=== PATIENT | male | born 1975 | race Caucasian/White ===

== ENCOUNTER 2020-06-09 09:38 | Outpatient (REF) | payer MEDICAID, SELFPAY | END 2020-06-09 09:39 | disposition home or self-care (01) | LOC: HO.LAB 09:38 | PROVIDERS: Visit Provider Internal Medicine | DX: Z20.822 Contact with and (suspected) exposure to COVID-19 (principal) | CPT/HCPCS: 36415; C9803; U0003; U0005 ==

== ENCOUNTER 2020-06-18 12:58 | Outpatient (REF) | payer MEDICAID, SELFPAY | END 2020-06-18 12:59 | disposition home or self-care (01) | LOC: HO.LAB 12:58 | PROVIDERS: Visit Provider Internal Medicine | DX: Z20.822 Contact with and (suspected) exposure to COVID-19 (principal) | CPT/HCPCS: 36415; C9803; U0003; U0005 ==

== ENCOUNTER 2020-06-19 12:32 | Emergency (ER) | payer MEDICAID, SELFPAY ==
--- NOTE | ~2020-06-19 | CT_ITS ---
EXAMINATION: CT MAXILLOFACIAL WITH CONTRAST CLINICAL INFORMATION: Right-sided facial swelling/abscess. COMPARISON: None available. TECHNIQUE: Multidetector helical imaging was performed in the axial plane with generation of coronal and sagittal reformatted images. This CT examination was performed using dose optimization techniques as appropriate, variously including the following: *Automated exposure control *Adjustment of mA and/or kV according to patient size (this includes techniques or standardized protocols for targeted exams where dose is matched to indication/reason for exam; i.e. extremities or head) *Use of iterative reconstruction technique DLP: 242 mGy-cm FINDINGS: FRONTAL SINUSES AND DRAINAGE PATHWAYS: Moderate mucosal thickening of the left frontal sinus. The frontoethmoidal recesses are patent. MAXILLARY SINUSES AND DRAINAGE PATHWAYS: Moderate mucosal thickening of the left greater than right maxillary sinuses. Opacification of the maxillary ostia and infundibula. ETHMOID SINUSES: Moderate mucosal thickening of the ethmoid air cells. The ethmoid roofs appear symmetric and intact. SPHENOID SINUS AND DRAINAGE PATHWAYS: The sphenoid sinus is clear. Partial opacification of the right greater than left sphenoethmoidal recesses. The carotid canals are normally covered by bone. NASAL PASSAGE: Moderate mucosal thickening of the right greater than left nasal passages. Moderate rightward nasal septal deviation with spurring. ORBITS: Normal appearance of the osseous orbits. The lamina papyracea are intact. Mild edema within the right inferior periorbital soft tissues. No additional Significant preseptal or retrobulbar edema. Normal appearance of the globes. Normal symmetric appearance of the extraocular musculature. No abnormalities of the intraconal or extraconal adipose tissue. Normal appearance of the optic nerve sheaths. Normal appearance of the lacrimal glands. No orbital fluid collections. No abnormalities of the orbital apices. TEMPOROMANDIBULAR JOINTS: The temporomandibular joints remain well aligned. Mild degenerative arthropathy of the right-sided temporomandibular joint. Normal appearance of the left-sided temporomandibular joint. ADDITIONAL RELEVANT FINDINGS: There appears to be a subcutaneous collection with peripheral enhancement along the right cheek, measuring 1.2 x 1.1 x 0.9 cm. Moderate phlegmonous edema surrounding this collection within the subcutaneous tissues along the right side of face. Mild edema within the right inferior periorbital soft tissues. Mild thickening of the right-sided platysma muscle. No radiopaque foreign bodies. Mildly prominent right upper cervical chain lymph nodes measuring up to 1.2 cm. No evidence of maxillofacial bone fractures. The zygomatic arches remain intact. No nasal bone fracture. No evidence of mandibular or maxillary fracture. The patient is edentulous. The visualized mastoid air cells and middle ear cavities remain well aerated. Limited evaluation of the intracranial structures without significant abnormalities. The premaxillary, retromaxillary, pterygopalatine fossa, temporal fossa, and parapharyngeal adipose tissue is maintained. The tongue is deviated to the right. Otherwise, no demonstrated soft tissue abnormalities within the intrinsic tissues of the tongue. CT/CT facial bones w con IMPRESSION: There appears to be peripheral enhancement surrounding a 1.2 cm subcutaneous region along the right cheek suggestive of focal infection/early abscess formation. Moderate phlegmonous edema throughout the right side of face surrounding this region. No collection within the deep soft tissues of the face. No radiopaque foreign bodies.
[2020-06-19 12:39] VITALS: BP 145/83; PULSE 83; RESP 16; TEMP 36.6; O2SAT 97; BMI 16.2
--- NOTE | 2020-06-19 13:05 | ED_ITS ---
HPI - Skin/Abscess/Foreign Bdy General Chief complaint: Skin/Abscess/Foreign Body Stated complaint: FACIAL SWELLING Time Seen by Provider: 06/19/20 12:55 Source: patient Mode of arrival: ambulatory Limitations: no limitations History of Present Illness HPI narrative: This is a 44-year-old male who reports longstanding history of stomach ulcer otherwise denies any significant past medical history who presents with complaint of states he had a ?pimple? on the right-sided face which he ?popped? last night and today right side of face appears to be more swelling with more pain and redness going to the lower eye. He denies any fever. He denies any intraoral pain. Denies any eye pain. MD complaint: abscess/boil Onset (ago): day(s) Tetanus up to date: yes Location: face Severity: moderate Associated symptoms: denies other symptoms Treatments prior to arrival: none Related Data Previous Rx's Medication Instructions Recorded cephalexin 500 mg PO Q8H 10 Days #30 cap 06/19/20 doxycycline monohydrate 100 mg PO BID 10 Days #20 cap 06/19/20 mupirocin 1 appl TOPICAL BID #15 g 06/19/20 Allergies Allergy/AdvReac Type Severity Reaction Status Date / Time codeine [CODEINE] Allergy Intermediate RASH Unverified 01/10/20 15:36 Review of Systems Review of Systems: Constitutional: No Weight loss, No Fever, No Chills, No Night Sweats, No Fatigue, No Malaise ENT/Mouth: No Hearing loss, No Ear Pain, No Nasal Congestion, No Sinus Pain, No Hoarseness, No sore throat, No Rhinorrhea, No Swallowing Difficulty Eyes: No Eye Pain, No Swelling, No Redness, No Foreign Body, No Discharge, No Vision Changes Cardiovascular: No Chest Pain, No SOB, No Dyspnea on Exertion, No Orthopnea, No Edema, No Palpitations Respiratory: No Cough, No Sputum, No Wheezing, No Smoke Exposure, No Dyspnea Gastrointestinal: No Nausea, No Vomiting, No Diarrhea, No Constipation, No abdominal Pain, No Hematochezia, No Melena Genitourinary: no irregular bleeding, No Dysuria, No Urinary Frequency, No Hematuria, No Urinary Incontinence, No Urgency, No Flank Pain, No Urinary Flow Changes, No Hesitancy Musculoskeletal: No joint pain, No Myalgias, No Joint Swelling Skin: As noted per HPI Neuro: No Weakness, No Numbness, No Paresthesias, No Loss of Consciousness, No Dizziness, No Headache Psych: No Social Issues Heme/Lymph: No Bruising, No Bleeding,No Lymphadenopathy Endocrine: No Polyuria, No Polydipsia, No Temperature Intolerance Yes all other systems are reviewed and are negative [facility] Past Medical History Medical History (Updated 06/19/20 @ 16:27 by Justin Abraham NP) Gastric ulcer No known health problems Social History Social History Alcohol intake: never Smoking Status: Current every day smoker Use of substances other than those prescribed or required for medical reasons: No Advance Directives: No Advance Directives Information Provided: No Physical Exam 2 Vital Signs: Vital Signs: Last Vital Signs Temp 97.9 F 06/19/20 12:39 Pulse 83 06/19/20 12:39 Resp 16 06/19/20 12:39 BP 145/83 H 06/19/20 12:39 Pulse Ox 97 06/19/20 12:39 Body Mass Index 16.2 Reviewed Const: General: cooperative and healthy appearing; No acute distress or intoxicated appearing Nutritional Appearance: average body habitus Orientation/consciousness: patient oriented x3 HENMT: Other: Head: Yes normal to inspection Ears: hearing grossly normal bilaterally Face and sinus: Yes Facial tenderness on exam of face and sinuses Teeth and gingiva: poor dentition (Essentially all teeth are eroded or missing.) Eyes: General: appearance normal, both eyes and all related structures Visual Barraza: normal visual barraza by confrontation Neck: Neck: Yes normal visual inspection, No positive Brudzinski's sign, No positive Kernig's sign and No tender Thyroid: Thyroid normal Chest: Chest palpation & inspection: normal inspection of the chest Resp: Effort & Inspection: normal respiratory effort Auscultation: clear to auscultation bilaterally Cardio: Jugular venous distension: no JVD Rhythm: regular rhythm Heart sounds: S1 normal heart sound present and S2 normal heart sound present GI: Inspection: Yes normal to inspection Palpation (GI): Soft to palpation Percussion: Yes normal to percussion Auscultation: normal bowel sounds : General: Yes no CVA tenderness Back/Spine/Pelvis: Back: no CVA tenderness Skin: General skin exam: no rashes or lesions noted Neuro: General: patient oriented x3 Extrem: General: Yes normal to inspection Course Course Course Narrative: CT without evidence of overt drainable collection. Shared decision making patient would like to trial p.o. antibiotics and will return in 2 days for recheck. Otherwise hemodynamically stable nontoxic-appearing Natasha stable for discharge. MDM - Skin/Abscess/Foreign Bdy Differential Diagnosis Differential diagnosis: Likely abscess of skin or subcutaneous tissue, viral exanthem, herpes zoster, cellulitis and impetigo; Unlikely dermatophytosis, urticaria, allergic reaction to drug, eczema, insect bites and contact dermatitis Medical Records Attestation: I reviewed the patient's medical records. Lab Data Attestation: I reviewed the patient's lab results. Result diagrams: 06/19/20 13:18 06/19/20 13:18 Labs: Lab Results 06/19/20 06/19/20 06/19/20 Range/Units 13:17 13:18 13:18 WBC 14.8 H (4.8-10.8) X10*3/uL RBC 4.69 (4.60-5.80) X10*6/uL Hgb 12.8 L (14.0-18.0) g/dl Hct 39.2 L (42-52) % MCV 83.6 (80-98) fL MCH 27.3 (27.0-33.0) pg MCHC 32.7 (31.0-36.0) g/dl RDW 15.0 (11.0-16.0) % Plt Count 373 (160-400) X10*3/uL MPV 9.8 (9.4-12.4) fL Immature Gran % (Auto) 0.5 H (0.0-0.4) % Neut % (Auto) 66.4 (45-73) % Lymph % (Auto) 15.2 L (20-40) % [place] % (Auto) 13.8 H (2-11) % Eos % (Auto) 3.7 (0-4) % Baso % (Auto) 0.4 (0-2) % Lymph # (Auto) 2.3 (1.2-4.9) X10*3/uL [place] # (Auto) 2.0 H (0.1-1.2) X10*3/uL Eos # (Auto) 0.6 H (0.0-0.4) X10*3/uL Baso # (Auto) 0.1 (0.0-0.2) X10*3/uL Abs Immat Gran (auto) 0.08 H (0.00-0.03) X10*3/uL Absolute Neuts (auto) 9.8 H (2.0-8.3) X10*3/uL Absolute Nucleated RBC 0.000 (0.0-0.012) X10*3/uL Nucleated RBC % (auto) 0.0 (0.0-0.2) /100WBC Smear Tech's Comments VERIFIED Sodium 142 (135-145) mmol/L Potassium 3.4 (3.3-5.1) mmol/L Chloride 99 (96-108) mmol/L Carbon Dioxide 35 H (22-29) mmol/L Anion Gap 11 L (12-20) BUN 8 L (9-16) mg/dL Creatinine 0.76 (0.5-1.4) mg/dL Estim Creat Clear Calc 96.4 Estimated GFR > 60 Random Glucose 88 (60-115) mg/dL Lactic Acid 1.8 (0.5-2.0) mmol/L Calcium 9.2 (8.4-10.2) mg/dL Total Bilirubin 0.6 (0.0-1.0) mg/dL AST 11 (5-37) U/L ALT 11 (0-40) U/L Alkaline Phosphatase 73 (39-117) U/L Total Protein 6.9 (6.5-8.0) g/dL Albumin 4.0 (3.5-5.0) g/dL Imaging Data Facial CT with contrast: Radiologist's impression: [address] Scan ReportSigned Patient: Giulia Connor#: [id number]: 1975Acct:[id number]/Sex: 44 / MADM Date: 06/19/20Loc: [address]: Ordering Physician: Justin Abraham NP Date of Service: 06/19/20 Procedure(s): CT facial bones w con Accession Number(s): [id number] cc: Justin Abraham NP~ EXAMINATION: CT MAXILLOFACIAL WITH CONTRAST CLINICAL INFORMATION: Right-sided facial swelling/abscess. COMPARISON: None available. TECHNIQUE: Multidetector helical imaging was performed in the axial plane with generation of coronal and sagittal reformatted images. This CT examination was performed using dose optimization techniques as appropriate, variously including the following: *Automated exposure control *Adjustment of mA and/or kV according to patient size (this includes techniques or standardized protocols for targeted exams where dose is matched to indication/reason for exam; i.e. extremities or head) *Use of iterative reconstruction technique DLP: 242 mGy-cm FINDINGS: FRONTAL SINUSES AND DRAINAGE PATHWAYS: Moderate mucosal thickening of the left frontal sinus. The frontoethmoidal recesses are patent. MAXILLARY SINUSES AND DRAINAGE PATHWAYS: Moderate mucosal thickening of the left greater than right maxillary sinuses. Opacification of the maxillary ostia and infundibula. ETHMOID SINUSES: Moderate mucosal thickening of the ethmoid air cells. The ethmoid roofs appear symmetric and intact. SPHENOID SINUS AND DRAINAGE PATHWAYS: The sphenoid sinus is clear. Partial opacification of the right greater than left sphenoethmoidal recesses. The carotid canals are normally covered by bone. NASAL PASSAGE: Moderate mucosal thickening of the right greater than left nasal passages. Moderate rightward nasal septal deviation with spurring. ORBITS: Normal appearance of the osseous orbits. The lamina papyracea are intact. Mild edema within the right inferior periorbital soft tissues. No additional Significant preseptal or retrobulbar edema. Normal appearance of the globes. Normal symmetric appearance of the extraocular musculature. No abnormalities of the intraconal or extraconal adipose tissue. Normal appearance of the optic nerve sheaths. Normal appearance of the lacrimal glands. No orbital fluid collections. No abnormalities of the orbital apices. TEMPOROMANDIBULAR JOINTS: The temporomandibular joints remain well aligned. Mild degenerative arthropathy of the right-sided temporomandibular joint. Normal appearance of the left-sided temporomandibular joint. ADDITIONAL RELEVANT FINDINGS: There appears to be a subcutaneous collection with peripheral enhancement along the right cheek, measuring 1.2 x 1.1 x 0.9 cm. Moderate phlegmonous edema surrounding this collection within the subcutaneous tissues along the right side of face. Mild edema within the right inferior periorbital soft tissues. Mild thickening of the right-sided platysma muscle. No radiopaque foreign bodies. Mildly prominent right upper cervical chain lymph nodes measuring up to 1.2 cm. No evidence of maxillofacial bone fractures. The zygomatic arches remain intact. No nasal bone fracture. No evidence of mandibular or maxillary fracture. The patient is edentulous. The visualized mastoid air cells and middle ear cavities remain well aerated. Limited evaluation of the intracranial structures without significant abnormalities. The premaxillary, retromaxillary, pterygopalatine fossa, temporal fossa, and parapharyngeal adipose tissue is maintained. The tongue is deviated to the right. Otherwise, no demonstrated soft tissue abnormalities within the intrinsic tissues of the tongue. CT/CT facial bones w con IMPRESSION: There appears to be peripheral enhancement surrounding a 1.2 cm subcutaneous region along the right cheek suggestive of focal infection/early abscess formation. Moderate phlegmonous edema throughout the right side of face surrounding this region. No collection within the deep soft tissues of the face. No radiopaque foreign bodies. Dictated By:LEE ANN VICENTE DOSigned By:<Electronically signed by LEE ANN VICENTE DO in OV>06/19/20 1604 DD/ 1301TD/TT: Client Sales And Service Officer: SILVIANO Discharge Plan Discharge Clinical Impression: Cellulitis Patient Disposition: Home, Self-Care Instructions: Cellulitis (ED) Additional Instructions: Warm compresses Take medication as prescribed, your 1st dose was given here today in the ER you can take her evening dose later tonight. Use a topical antibiotic ointment only over the scabbed area do not foot and to the eyes or close his eyes. Return in 2 days for recheck Return sooner if any concerns or worsening symptoms Thank you Prescriptions: New doxycycline monohydrate 100 mg capsule 100 mg PO BID 10 Days Qty: 20 RF: 0 cephalexin 500 mg capsule 500 mg PO Q8H 10 Days Qty: 30 RF: 0 mupirocin 2 % ointment 1 appl topical BID Qty: 15 RF: 0 Referrals: [facility] [Primary Care Provider] - 2 days Justin Abraham PARTY PLAN SALES CONSULTANT [Emergency Midlevel Provider] - 2 days
[2020-06-19 13:25] LABS: Basophils Absolute Auto 0.1 X10*3/uL (0.0-0.2); Basophils Percent Auto 0.4 % (0-2); Eosinophils Absolute Auto 0.6 X10*3/uL (0.0-0.4); Eosinophils Percent Auto 3.7 % (0-4); Hematocrit 39.2 % (42-52); Hemoglobin 12.8 g/dl (14.0-18.0); Imm Gran Abs Auto 0.08 X10*3/uL (0.00-0.03); Imm Gran Pct Auto 0.5 % (0.0-0.4); Lymphocytes Absolute Auto 2.3 X10*3/uL (1.2-4.9); Lymphocytes Percent Auto 15.2 % (20-40); MANUAL DIFF FLAG SCAN; Mean Corpuscular HGB Conc 32.7 g/dl (31.0-36.0); Mean Corpuscular Hemoglobin 27.3 pg (27.0-33.0); Mean Corpuscular Volume 83.6 fL (80-98); Mean Platelet Volume 9.8 fL (9.4-12.4); Monocytes Percent Auto 13.8 % (2-11); Neutrophils Absolute Auto 9.8 X10*3/uL (2.0-8.3); Neutrophils Percent Auto 66.4 % (45-73); Platelet Count 373 X10*3/uL (160-400); Red Blood Count 4.69 X10*6/uL (4.60-5.80); SCAN SMEAR FLAG 1; White Blood Count 14.8 X10*3/uL (4.8-10.8)
[2020-06-19 13:53] LABS: Lactic Acid 1.8 mmol/L (0.5-2.0)
[2020-06-19 13:55] LABS: SLIDE REVIEW VERIFIED
[2020-06-19 14:00] LABS: Alanine Aminotransferase 11 U/L (0-40); Alkaline Phosphatase 73 U/L (39-117); Anion Gap 11 (12-20); Aspartate Amino Transferase 11 U/L (5-37); Bilirubin Total 0.6 mg/dL (0.0-1.0); Blood Urea Nitrogen 8 mg/dL (9-16); Calcium 9.2 mg/dL (8.4-10.2); Carbon Dioxide 35 mmol/L (22-29); Chloride 99 mmol/L (96-108); Creatinine Clr Calc Pharmacy 96.4; Estimated Glomerular Filt Rate > 60; Glucose Random 88 mg/dL (60-115); Potassium 3.4 mmol/L (3.3-5.1); Sodium 142 mmol/L (135-145); Total Protein 6.9 g/dL (6.5-8.0)
[2020-06-19] MEDS: iohexoL 350 MG/ML 100 ML INFUS..BTL 85 ML IV (14:42)
[2020-06-19] MEDS: Ketorolac Tromethamine 30 MG/ML VIAL IVPUSH (15:51)
[2020-06-19] MEDS: cephALEXin 500 MG CAPSULE PO (16:24)
== END 2020-06-19 16:45 | disposition home or self-care (01) ==
PROVIDERS: Nurse Practitioner Primary Care; Emergency Provider Emergency Medicine
DX: L03.211 Cellulitis of face (principal); L02.01 Cutaneous abscess of face; F17.200 Nicotine dependence, unspecified, uncomplicated
CPT/HCPCS: 36415; 70487; 80053; 83605; 85025; 87040; 96374; 99284; J1885; Q9967

== ENCOUNTER 2021-03-05 10:35 | Outpatient (REF) | payer MEDICAID, SELFPAY ==
[2021-03-05 11:13] LABS: COVID-19 Test Negative (Negative)
== END 2021-03-05 10:36 | disposition home or self-care (01) ==
LOC: HO.LAB 10:35
PROVIDERS: Visit Provider Internal Medicine
DX: Z20.822 Contact with and (suspected) exposure to COVID-19 (principal)
CPT/HCPCS: 36415; 87635; C9803

== ENCOUNTER 2021-03-15 09:29 | Emergency (ER) | payer MEDICAID, SELFPAY ==
[2021-03-15 09:39] VITALS: BP 134/74; PULSE 77; RESP 17; TEMP 36.6; O2SAT 97; BMI 20.3
--- NOTE | 2021-03-15 11:44 | ED.URI ---
HPI - URI/Sore Throat General Chief Complaint: General Medical Stated Complaint: headache, weakness, body ache Time Seen by Provider: 03/15/21 11:26 Source: patient Mode of arrival: ambulatory Limitations: no limitations History of Present Illness MD elicited complaint: sore throat, rhinorrhea and nasal congestion Onset (ago): day(s) (Last few days worse since yesterday) Consistency: constant and progressively worsening Severity: mild Description of mucous: clear, watery and yellow Able to tolerate fluids by mouth: Yes Exacerbating factors: swallowing Relieving factors: nothing Context: other(s) with similar symptoms (He reports his father had COVID 2 weeks ago although he has tested negative for the past 2 weeks) Associated symptoms: chills, myalgias, headache, rhinorrhea, nasal congestion, sore throat, epistaxis and ear pain Treatments prior to arrival: none Related Data Previous Rx's Medication Instructions Recorded cephalexin 500 mg capsule 500 mg PO Q8H 10 Days #30 cap 06/19/20 doxycycline monohydrate 100 mg 100 mg PO BID 10 Days #20 cap 06/19/20 capsule mupirocin 2 % topical ointment 1 appl TOPICAL BID #15 g 06/19/20 azithromycin 250 mg tablet See Rx Instructions .ROUTE 03/15/21 .COMPLEX #6 tab Allergies Allergy/AdvReac Type Severity Reaction Status Date / Time codeine [CODEINE] Allergy Intermediate RASH Unverified 01/10/20 15:36 Review of Systems Review of Systems: Constitutional : Positive chills/fatigue/malaise, No Weight loss, No Fever, No Night Sweats ENT/Mouth : Positive sore throat/nasal congestion/rhinorrhea and resolved epistaxis, positive ear pain, No Hearing loss, No Sinus Pain, No Hoarseness, No Swallowing Difficulty Eyes: No Eye Pain, No Swelling, No Redness, No Foreign Body, No Discharge, No Vision Changes Cardiovascular : No Chest Pain, No SOB, No Dyspnea on Exertion, No Orthopnea, No Edema, No Palpitations Respiratory : No Cough, No Sputum, No Wheezing, No Smoke Exposure, No Dyspnea Gastrointestinal : No Nausea, No Vomiting, No Diarrhea, No Constipation, No abdominal Pain, No Hematochezia, No Melena Genitourinary : no irregular bleeding, No Dysuria, No Urinary Frequency, No Hematuria, No Urinary Incontinence, No Urgency, No Flank Pain, No Urinary Flow Changes, No Hesitancy Musculoskeletal : Positive myalgias, No joint pain, No Joint Swelling Skin : No Skin Lesions, No rash Neuro : No Weakness, No Numbness, No Paresthesias, No Loss of Consciousness, No Dizziness, No Headache Psych : No Anxiety/Panic, No Depression, No SI/HI/AH/VH, No Social Issues, Heme/Lymph: No Bruising, No Bleeding,No Lymphadenopathy Endocrine : No Polyuria, No Polydipsia, No Temperature Intolerance Yes all other systems are reviewed and are negative [facility] Past Medical History Attestation statement: The following information was validated with the patient. Medical History Gastric ulcer No known health problems Social History Social History Alcohol intake: never Advance Directives: No Physical Exam Vital Signs: Vital Signs: Last Vital Signs Temp 98 F 03/15/21 09:39 Pulse 77 03/15/21 09:39 Resp 17 03/15/21 09:39 BP 134/74 03/15/21 09:39 Pulse Ox 97 03/15/21 09:39 Body Mass Index 20.3 vital signs have been reviewed as normal and appeared to be correct. Blood pressure normal. Heart rate normal. Respiration rate normal. Temperature normal. Oxygen saturation normal. Appearance: Alert. Oriented X3. No acute distress. Head: Normal external exam. Normocephalic. Atraumatic. Eyes: PERRLA. EOMI. Conjunctiva and sclera normal. Eyelids normal. ENT: EAC normal. TM's Normal. Pharynx normal. Uvula midline. Moist mucous membranes. No trismus noted. No drooling noted. No muffled voice noted. Neck: Normal inspection. Neck supple. FROM. No adenopathy. Thyroid Normal. No meningeal signs. No neck mass noted. CVS: Normal heart rate and rhythm. Heart sound normal. Pulses normal throughout. No murmurs/rales/gallops. Respiratory: No respiratory distress. Painless inspiration. Breath sounds normal. No wheezes/rales/rhonchi noted. Chest nontender. No accessory muscle usage noted or decreased air movement noted. Abdomen: Soft and nontender. Bowel sounds normal in all 4 quadrants. No distention noted. No organomegaly noted. No visible injury noted. Back: Full range of motion noted. No rashes/lesion/induration/fluctuance or signs of infection noted. Skin: Skin warm and dry. Normal skin color. Normal skin turgor. No rashes/lesions/lacerations noted. Extremities: Extremities exhibit normal range of motion. Extremities nontender. Neuro: Oriented X 3. No motor deficit. No sensory deficit. Reflexes normal. Normal steady gait. No focal neuro deficits noted. Vascular: + radial pulses Normal cap refill. No cyanosis noted to upper extremity nails Course Course Course Narrative: 45-year-old male with URI symptoms for the past few days worse today. Reports that his father was tested positive for COVID approximately 2 weeks ago although he does not live with his father although his father gives him a ride to work although he has tested negative for COVID for the past 2 weeks. He denies recent travel or any other sick contacts. Will obtain COVID swab and DC home with antibiotics and symptomatic treatment for possible sinusitis instructions return if any new or worsening symptoms to self isolate until negative results or until his symptoms improve. Along with instructions return if any new or worsening symptoms to follow up with primary care provider. Patient understands agrees with this plan. MDM - URI/Sore Throat Medical Records Attestation: I reviewed the patient's medical records. Lab Data Attestation: I reviewed the patient's lab results. Labs: Lab Results 03/15/21 Range/Units 11:40 COVID-19 ([facility]) Negative (Negative) COVID-19 Clin Com See Note Discharge Plan Discharge Clinical Impression: Upper respiratory infection Patient Disposition: Home, Self-Care Instructions: Upper Respiratory Infection (ED) Additional Instructions: Based on your symptoms and history we have sent a COVID-19. Although your RESULT IS PENDING at this time. RESULTS should return within 2-4 hours. At this time you will be contacted with ONLY POSITIVE results. -Please wait until we contact you for your results. At this time you will be okay for discharge. Please plan for self quarantine for up to 14 days. Do not expose yourself to others. You may not go to work. If testing does come back negative you may return to activities as long as you are no longer having any symptoms for at least 3 days. Please continue to follow cold instructions and wash your hands frequently. You may take Tylenol as directed on the bottle for pain or fever. Patient seen in the emergency department on -------- and should be excused from work until negative test results AND until 72 hours without any symptoms AND at least 10 days have passed since symptoms first appeared or since last exposure to COVID-19 positive patient CDC Guidelines for home isolation: - Stay away from others - WEAR A MASK if you are sick AND STAY HOME - Cover your mouth and nose with a tissue when you cough or sneeze. Dispose of tissues in a lined trash can and wash your hands immediately with soap and water for at least 20 seconds. If soap and water are not available, clean hands with alcohol-based hand director corporate sales that contains at least 60% alcohol. - Clean your hands often with soap and water for at least 20 seconds - Avoid touching your eyes, nose and mouth with unwashed hands - Do not share dishes, drinking glasses, cups, eating utensils, towels, or bedding with other people in your home. After using these items, wash them thoroughly with soap and water or put in the technical customer support specialist. - Clean high-touch surfaces in your isolation area ( sick room and bathroom) every day; let a caregiver clean and disinfect high-touch surfaces in other areas of the home. Clean the area or item with soap and water or another detergent if it is dirty. Then, use a household disinfectant. - Limit contact with pets and animals: If you must care for a pet, wash your hands before and after interacting with them). Prescriptions: New azithromycin 250 mg tablet See Rx Instructions .ROUTE .COMPLEX Qty: 6 RF: 0 No Action doxycycline monohydrate 100 mg capsule 100 mg PO BID 10 Days Qty: 20 RF: 0 cephalexin 500 mg capsule 500 mg PO Q8H 10 Days Qty: 30 RF: 0 mupirocin 2 % ointment 1 appl topical BID Qty: 15 RF: 0 Referrals: [facility] [Primary Care Provider] - 2 days Stand Alone Forms: Work/School Release Print Language: Indonesian
[2021-03-15 12:01] LABS: COVID-19 Test Negative (Negative); IDNOW Serial# 9DD0AD1C
== END 2021-03-15 12:07 | disposition home or self-care (01) ==
PROVIDERS: Physician Assistant Medical; Emergency Provider Emergency Medicine Emergency Medical Services
DX: R51.9 Headache, unspecified (principal); M79.10 Myalgia, unspecified site; Z20.822 Contact with and (suspected) exposure to COVID-19; Z79.899 Other long term (current) drug therapy
CPT/HCPCS: 36415; 87635; 99283

== ENCOUNTER 2021-06-13 05:24 | Emergency (ER) | payer MEDICAID, SELFPAY ==
[2021-06-13 05:29] VITALS: BP 129/66; PULSE 65; RESP 18; TEMP 36.6; O2SAT 97; BMI 21.7
--- NOTE | 2021-06-13 06:59 | ED.HA ---
HPI - Headache General Chief Complaint: Headache Stated Complaint: sinus infection Time Seen by Provider: 06/13/21 06:57 Source: patient Mode of arrival: ambulatory Limitations: no limitations History of Present Illness HPI Narrative: 45-year-old male came in for evaluation of headache. Frontal and facial headache started 2 days ago, pain is constant for the last 2 days, worsening with the cold weather or extreme heating, associated with yellowish nasal discharge, no fever, no chills, patient get this type of headache twice a year and get treated with Augmentin for sinusitis. Patient declined any photophobia, no neck stiffness. No family history of brain bleed or aneurysm or brain tumor. Related Data Previous Rx's Medication Instructions Recorded cephalexin 500 mg capsule 500 mg PO Q8H 10 Days #30 cap 06/19/20 doxycycline monohydrate 100 mg 100 mg PO BID 10 Days #20 cap 06/19/20 capsule mupirocin 2 % topical ointment 1 appl TOPICAL BID #15 g 06/19/20 azithromycin 250 mg tablet See Rx Instructions .ROUTE 03/15/21 .COMPLEX #6 tab amoxicillin 875 mg-potassium 1 tab PO Q12H #20 tab 06/13/21 clavulanate 125 mg tablet Allergies Allergy/AdvReac Type Severity Reaction Status Date / Time codeine [CODEINE] Allergy Intermediate RASH Unverified 01/10/20 15:36 Review of Systems Review of Systems: All other systems are reviewed and are negative Constitutional: Reports as per HPI and Reports no additional constitutional complaints Eyes: Reports as per HPI and Reports no additional eye complaints Reports system reviewed and no additional complaints, except as documented Cardiovascular: Reports as per HPI and Reports no additional cardiovascular complaints Respiratory: Reports as per HPI and Reports no additional respiratory complaints Gastrointestinal: Reports as per HPI and Reports no additional gastrointestinal complaints Genitourinary: Reports no additional female genitourinary complaints Musculoskeletal: Reports no additional musculoskeletal complaints Skin/Breast: Reports system reviewed and no additional complaints, except as docu Psychiatric: Reports no additional psychiatric complaints Endocrine: Reports no additional endocrine complaints Hematologic/Lymphatic: Reports no additional hematologic/lymphatic complaints Allergic/Immunologic: Reports no additional allergic/immunologic complaints Reports system reviewed and no additional complaints, except as documented and Reports Abnormal speech present [facility] Past Medical History Medical History Gastric ulcer No known health problems Social History Social History Alcohol intake: never Advance Directives: No Advance Directives Information Provided: Yes Physical Exam Vital Signs: Vital Signs: Last Vital Signs Temp 97.9 F 06/13/21 05:29 Pulse 65 06/13/21 05:29 Resp 18 06/13/21 05:29 BP 129/66 06/13/21 05:29 Pulse Ox 97 06/13/21 05:29 BMI result Body Mass Index 21.7 Vital signs have been reviewed as appeared to be correct. Blood pressure normal. Heart rate normal. Respiration rate normal. Temperature normal. Oxygen saturation normal. Appearance: Alert. Oriented X3. No acute distress. Head: Normal external exam. Normocephalic. Atraumatic. No Osborne signs noted. No raccoon eyes noted Eyes: PERRLA. EOMI. Conjunctiva and sclera normal. Eyelids normal. ENT: TM's Normal. Pharynx normal. Uvula midline. Moist mucous membranes. No trismus noted. No drooling noted. No muffled voice noted. Tenderness with percussion over bilateral frontal and maxillary sinuses, nasal mucosal congestion with purulent discharge. Neck: Normal inspection. Neck supple. FROM. No adenopathy. Thyroid Normal. No meningeal signs. No neck mass noted. CVS: Normal heart rate and rhythm. Heart sound normal. No murmurs noted. Pulses normal throughout. Respiratory: No respiratory distress. Painless inspiration. Breath sounds normal. No wheezes/rales/rhonchi noted. Chest nontender. No accessory muscle usage noted or decreased air movement noted. Abdomen: Soft and nontender. Bowel sounds normal in all 4 quadrants. No distention noted. No organomegaly noted. No visible injury noted. Back: No CVA tenderness. Full range of motion noted. Skin: Skin warm and dry. Normal skin color. Normal skin turgor. No rashes/lesions/lacerations noted. Extremities: No lower extremity edema. Extremities exhibit normal range of motion. Extremities nontender. Neuro: Oriented X 3. Cranial nerve exam: II-XII are grossly intact No motor deficit. No sensory deficit. Reflexes normal. Course Course Course Narrative: Assessment and plan. Sinus infection causing facial pain will treat with Augmentin for 10 days. Discharge Plan Discharge Clinical Impression: Sinusitis Patient Disposition: Home, Self-Care Instructions: Sinusitis (ED) Prescriptions: New amoxicillin-pot clavulanate 875-125 mg tablet 1 tab PO Q12H Qty: 20 0RF No Action doxycycline monohydrate 100 mg capsule 100 mg PO BID 10 Days Qty: 20 0RF cephalexin 500 mg capsule 500 mg PO Q8H 10 Days Qty: 30 0RF mupirocin 2 % ointment 1 appl topical BID Qty: 15 0RF azithromycin 250 mg tablet See Rx Instructions .ROUTE .COMPLEX Qty: 6 0RF Rx Instructions: take 500 mg today (day 1), then 250 mg for 4 days (days 2-5) Referrals: [facility] [Primary Care Provider] - 2 days Stand Alone Forms: Work/School Release
[2021-06-13] MEDS: Amoxicillin/Potassium Clav 875 MG TABLET PO (07:08)
== END 2021-06-13 07:14 | disposition home or self-care (01) ==
PROVIDERS: Emergency Provider Emergency Medicine
DX: J32.8 Other chronic sinusitis (principal); R51.9 Headache, unspecified
CPT/HCPCS: 99283; 99284

== ENCOUNTER 2022-04-10 03:45 | Observation (INO) | payer MEDICAID, SELFPAY ==
--- NOTE | ~2022-04-10 | CT_ITS ---
EXAMINATION: CT ABDOMEN AND PELVIS WITHOUT CONTRAST CLINICAL INFORMATION: Right upper quadrant and right lower quadrant abdominal pain. COMPARISON: None TECHNIQUE: Multidetector volumetric imaging was performed from the superior aspect of the liver through the pubic symphysis. Sagittal and coronal reformatted images were obtained on the technologist's workstation. This CT examination was performed using dose optimization techniques as appropriate, variously including the following: *Automated exposure control *Adjustment of mA and/or kV according to patient size (this includes techniques or standardized protocols for targeted exams where dose is matched to indication/reason for exam; i.e. extremities or head) *Use of iterative reconstruction technique DLP: 283 mGy-cm FINDINGS: LUNG BASES: 4 mm right lower lobe pulmonary nodule (4:64). 2 mm left lower lobe nodule (4:18). No focal consolidation or pleural effusion. Trace amount of pericardial fluid partially imaged. LIVER, GALLBLADDER, AND BILIARY TREE: Water density cyst in the left lobe measuring 1 cm (3:6). Focal fatty infiltration adjacent to the fissure of the falciform ligament (3:23). No other discrete focal liver abnormality in this limited noncontrast examination. Normal appearance of the gallbladder. No biliary ductal dilatation. PANCREAS: Limited noncontrast examination, unremarkable. SPLEEN: Limited noncontrast examination, unremarkable. ADRENAL GLANDS: No adrenal mass. KIDNEYS AND URETERS: No nephrolithiasis or hydronephrosis. No perinephric fat stranding. BLADDER: Unremarkable. GASTROINTESTINAL TRACT: No evidence of bowel obstruction. Moderate colonic stool content suggesting constipation. A blind-ending tubular structure in the right lower quadrant likely represents the appendix (coronal images 30 through 37 of series 5) measuring up to 8 mm in diameter with no significant periappendiceal fat stranding. ABDOMINAL WALL: No significant hernia is appreciated. LYMPH NODES: Evaluation of lymph nodes is limited due to paucity of abdominal fat and lack of IV contrast. No bulky lymphadenopathy is noted. VASCULAR: Limited noncontrast examination. The abdominal aorta is of normal diameter. PELVIC VISCERA: Mild prostatomegaly with coarse prostatic calcifications. OSSEOUS STRUCTURES: No acute or aggressive appearing osseous abnormalities. CT/CT abdomen pelvis wo IV con IMPRESSION: Limited noncontrast examination. 1. The appendix is slightly dilated measuring up to 8 mm in diameter with no significant periappendiceal fat stranding, recommend clinical correlation for early acute appendicitis. 2. Moderate colonic stool content suggesting constipation. 3. No nephrolithiasis or hydronephrosis. 4. Incidentally noted 4 mm right lower lobe pulmonary nodule and 2 mm left lower lobe pulmonary nodule. Assuming patient has no history of malignancy, recommend follow-up per Fleischner Society recommendations. According to the UPDATED 2017 Fleischner Society recommendations, the advised followup imaging for solid nodules < 6 mm is: LOW RISK PATIENT: No routine follow up. HIGH RISK PATIENT: Optional CT at 12 months. Fleischner guidelines were followed.
[2022-04-10 03:52] VITALS: BP 127/96; PULSE 91; RESP 18; TEMP 36.9; O2SAT 98; BMI 17.5
[2022-04-10 04:04] LABS: MANUAL DIFF FLAG NO
[2022-04-10 04:05] LABS: Basophils Absolute Auto 0.1 X10*3/uL (0.0-0.2); Basophils Percent Auto 0.6 % (0-2); Eosinophils Absolute Auto 0.4 X10*3/uL (0.0-0.4); Eosinophils Percent Auto 3.5 % (0-4); Hematocrit 38.9 % (42.0-52.0); Hemoglobin 12.7 g/dl (14.0-18.0); Imm Gran Abs Auto 0.03 X10*3/uL (0.00-0.03); Imm Gran Pct Auto 0.3 % (0.0-0.4); Lymphocytes Absolute Auto 2.5 X10*3/uL (1.2-4.9); Lymphocytes Percent Auto 24.3 % (20-40); Mean Corpuscular HGB Conc 32.6 g/dl (31.0-36.0); Mean Corpuscular Hemoglobin 27.1 pg (27.0-33.0); Mean Corpuscular Volume 82.9 fL (80.0-98.0); Mean Platelet Volume 10.1 fL (9.4-12.4); Monocytes Percent Auto 10.1 % (2-11); Neutrophils Absolute Auto 6.2 x10*3/uL (2.0-8.3); Neutrophils Percent Auto 61.2 % (45-73); Platelet Count 274 X10*3/uL (160-400); Red Blood Count 4.69 X10*6/uL (4.60-5.80); Red Cell Distribution Width 14.1 % (11.0-16.0); White Blood Count 10.1 X10*3/uL (4.8-10.8)
[2022-04-10 04:10] VITALS: BP 131/63; PULSE 72; RESP 18; TEMP 36.9; O2SAT 96
[2022-04-10 04:23] LABS: COVID-19 Test Negative (Negative)
[2022-04-10 04:35] LABS: Alanine Aminotransferase 20 U/L (0-40); Albumin Level 4.2 g/dL (3.5-5.0); Alkaline Phosphatase 79 U/L (39-117); Anion Gap 12 (12-20); Aspartate Amino Transferase 22 U/L (5-37); Bilirubin Total 0.2 mg/dL (0.0-1.0); Blood Urea Nitrogen 9 mg/dL (9-16); Calcium 9.1 mg/dL (8.4-10.2); Carbon Dioxide 29 mmol/L (22-29); Chloride 100 mmol/L (96-108); Creatinine Clr Calc Pharmacy 89.9; Estimated Glomerular Filt Rate > 60; Glucose Random 134 mg/dL (60-115); Potassium 3.7 mmol/L (3.3-5.1); Sodium 137 mmol/L (135-145); Total Protein 6.8 g/dL (6.5-8.0)
--- NOTE | 2022-04-10 04:53 | ED.ABDPAIN ---
HPI - Abdominal Pain General Chief Complaint: Abdominal Pain Stated Complaint: pain on right side Time Seen by Provider: 04/10/22 04:48 Source: patient Mode of arrival: ambulatory Limitations: no limitations History of Present Illness HPI narrative: Patient comes to the emergency room complaining of 2-3 days of right lower quadrant pain and right upper quadrant pain. Patient denies pain with urination, no fever chills, flank pain. Patient states that he has not been hungry for several days. Patient denies nausea vomiting or diarrhea. No fever or chills. Related Data Previous Rx's Medication Instructions Recorded cephalexin 500 mg capsule 500 mg PO Q8H 10 days #30 caps 06/19/20 doxycycline monohydrate 100 mg 100 mg PO BID 10 days #20 caps 06/19/20 capsule mupirocin 2 % topical ointment 1 appl topical BID #15 grams 06/19/20 azithromycin 250 mg tablet See Rx Instructions PO .COMPLEX #6 03/15/21 tabs amoxicillin 875 mg-potassium 1 tab PO Q12H #20 tabs 06/13/21 clavulanate 125 mg tablet Allergies Allergy/AdvReac Type Severity Reaction Status Date / Time codeine [CODEINE] Allergy Intermediate RASH Unverified 01/10/20 15:36 Review of Systems Review of Systems Constitutional : No Weight loss, No Fever, No Chills, No Night Sweats, No Fatigue, No Malaise ENT/Mouth : No Hearing loss, No Ear Pain, No Nasal Congestion, No Sinus Pain, No Hoarseness, No sore throat, No Rhinorrhea, No Swallowing Difficulty Eyes: No Eye Pain, No Swelling, No Redness, No Foreign Body, No Discharge, No Vision Changes Cardiovascular : No Chest Pain, No SOB, No Dyspnea on Exertion, No Orthopnea, No Edema, No Palpitations Respiratory : No Cough, No Sputum, No Wheezing, No Smoke Exposure, No Dyspnea Gastrointestinal : No Nausea, No Vomiting, No Diarrhea, No Constipation, complaining of right upper lower quadrant pain Genitourinary : no irregular bleeding, No Dysuria, No Urinary Frequency, No Hematuria, No Urinary Incontinence, No Urgency, No Flank Pain, No Urinary Flow Changes, No Hesitancy Musculoskeletal : No joint pain, No Myalgias, No Joint Swelling Skin : No Skin Lesions, No rash Neuro : No Weakness, No Numbness, No Paresthesias, No Loss of Consciousness, No Dizziness, No Headache Psych : No Anxiety/Panic, No Depression, No SI/HI/AH/VH, No Social Issues, Heme/Lymph: No Bruising, No Bleeding,No Lymphadenopathy Endocrine : No Polyuria, No Polydipsia, No Temperature Intolerance PMFSH Past Medical History Medical History Gastric ulcer No known health problems Social History Social History Alcohol intake: never Advance Directives: No Advance Directives Information Provided: Yes Physical Exam ED Vital Signs: Vital Signs - 24 hr 04/10/22 03:52 04/10/22 04:10 04/10/22 06:08 Temperature 98.5 F 98.4 F 98.7 F Pulse Rate 91 72 47 L Respiratory Rate 18 18 14 Blood Pressure 127/96 H 131/63 120/72 Pulse Oximetry 98 96 98 Oxygen Delivery Method Room Air Room Air Room Air BMI result Body Mass Index 17.5 Const Other: Appearance: Alert. Oriented X3. No acute distress. Cachectic Eyes: Pupils equal, round and reactive to light. ENT: Pharynx normal. Neck: Normal inspection. Neck supple. No lymph nodes noted. No crepitus CVS: Normal heart rate and rhythm. Pulses normal. Normal S1 and S2 Respiratory: Mild pain to palpation in the right lower quadrant pain, mild pain also in the right upper quadrant pain, no guarding, no rebound Abdomen: Soft and nontender. No rigidity. No distention. Skin: Skin warm and dry. Normal skin color. Normal skin turgor. Extremities: No lower extremity edema. No Lacerations. No Rash Neuro: Oriented X 3. No motor deficit. No sensory deficit. Moving all extremities. No slurred speech. CN 2 through 12 grossly intact Psych: calm, cooperative, normal affect Course Course Course Narrative: Patient's white blood cell count normal limits, urinalysis pending. CT scan pending White blood cell count within normal limits. CT scan shows possible early appendicitis. Patient is receiving Zosyn at this time. I discussed the patient with Dr. Hwang he will come by to the emergency room this morning to evaluate the patient. sign out given to Dr. Miller Medical Decision Making Differential Diagnosis Differential Diagnoses: The differential diagnosis associated with the presentation includes (Appendicitis, colitis) Admission/Observation Consideration of admission/observation: Escalation of care including admission/observation considered (CT scan of the abdomen shows possible appendicitis. Patient will be on observation in the emergency room until he is evaluated by surgery, and then disposition will be determined.) Consult Healthcare Provider Management of the patient was discussed with: Senior Health Consultant (I discussed the patient labs and imaging with Dr. Hwang, who will be coming by shortly to evaluate the patient and determine disposition) Lab Data MDM Lab Attestation statement: I reviewed the patient's lab results. Result Diagrams: 04/10/22 03:58 04/10/22 03:58 Labs: Lab Results 04/10/22 04/10/22 04/10/22 Range/Units 03:58 03:58 04:00 WBC 10.1 (4.8-10.8) X10*3/uL RBC 4.69 (4.60-5.80) X10*6/uL Hgb 12.7 L (14.0-18.0) g/dl Hct 38.9 L (42.0-52.0) % MCV 82.9 (80.0-98.0) fL MCH 27.1 (27.0-33.0) pg MCHC 32.6 (31.0-36.0) g/dl RDW 14.1 (11.0-16.0) % Plt Count 274 (160-400) X10*3/uL MPV 10.1 (9.4-12.4) fL Immature Gran % (Auto) 0.3 (0.0-0.4) % Neut % (Auto) 61.2 (45-73) % Lymph % (Auto) 24.3 (20-40) % [place] % (Auto) 10.1 (2-11) % Eos % (Auto) 3.5 (0-4) % Baso % (Auto) 0.6 (0-2) % Lymph # (Auto) 2.5 (1.2-4.9) X10*3/uL [place] # (Auto) 1.0 (0.1-1.2) X10*3/uL Eos # (Auto) 0.4 (0.0-0.4) X10*3/uL Baso # (Auto) 0.1 (0.0-0.2) X10*3/uL Abs Immat Gran (auto) 0.03 (0.00-0.03) X10*3/uL Absolute Neuts (auto) 6.2 (2.0-8.3) x10*3/uL Absolute Nucleated RBC 0.000 (0.0-0.012) X10*3/uL Nucleated RBC % (auto) 0.0 (0.0-0.2) /100WBC Sodium 137 (135-145) mmol/L Potassium 3.7 (3.3-5.1) mmol/L Chloride 100 (96-108) mmol/L Carbon Dioxide 29 (22-29) mmol/L Anion Gap 12 (12-20) BUN 9 (9-16) mg/dL Creatinine 0.86 (0.5-1.4) mg/dL Estim Creat Clear Calc 89.9 Estimated GFR > 60 Random Glucose 134 H (60-115) mg/dL Calcium 9.1 (8.4-10.2) mg/dL Total Bilirubin 0.2 (0.0-1.0) mg/dL AST 22 (5-37) U/L ALT 20 (0-40) U/L Alkaline Phosphatase 79 (39-117) U/L Total Protein 6.8 (6.5-8.0) g/dL Albumin 4.2 (3.5-5.0) g/dL COVID-19 (BETH) Negative (Negative) COVID-19 Clin Com See Note Independent Interpretation I performed an independent interpretation of an: CT Scan (My interpretation, I can not really see the appendix. However, the radiology report states that the appendix is dilated at 8 mm) Radiology Impression Discussion of test interpretation with radiology: I have reviewed the radiologist's reading. Radiologist Impression: FINDINGS: LUNG BASES: 4 mm right lower lobe pulmonary nodule (4:64). 2 mm left lower lobe nodule (4:18). No focal consolidation or pleural effusion. Trace amount of pericardial fluid partially imaged.? LIVER, GALLBLADDER, AND BILIARY TREE: Water density cyst in the left lobe measuring 1 cm (3:6). Focal fatty infiltration adjacent to the fissure of the falciform ligament (3:23). No other discrete focal liver abnormality in this limited noncontrast examination. Normal appearance of the gallbladder. No biliary ductal dilatation. PANCREAS: Limited noncontrast examination, unremarkable.? SPLEEN: Limited noncontrast examination, unremarkable.? ADRENAL GLANDS: No adrenal mass.? KIDNEYS AND URETERS: No nephrolithiasis or hydronephrosis. No perinephric fat stranding.? BLADDER: Unremarkable.? GASTROINTESTINAL TRACT: No evidence of bowel obstruction. Moderate colonic stool content suggesting constipation. A blind-ending tubular structure in the right lower quadrant likely represents the appendix (coronal images 30 through 37 of series 5) measuring up to 8 mm in diameter with no significant periappendiceal fat stranding.? ABDOMINAL WALL: No significant hernia is appreciated.? LYMPH NODES: Evaluation of lymph nodes is limited due to paucity of abdominal fat and lack of IV contrast. No bulky lymphadenopathy is noted. VASCULAR: Limited noncontrast examination. The abdominal aorta is of normal diameter. PELVIC VISCERA: Mild prostatomegaly with coarse prostatic calcifications.? OSSEOUS STRUCTURES: No acute or aggressive appearing osseous abnormalities.? CT/CT abdomen pelvis wo IV con IMPRESSION: Limited noncontrast examination. ? 1.? The appendix is slightly dilated measuring up to 8 mm in diameter with no significant periappendiceal fat stranding, recommend clinical correlation for early acute appendicitis. 2.? Moderate colonic stool content suggesting constipation. 3.? No nephrolithiasis or hydronephrosis. 4.? Incidentally noted 4 mm right lower lobe pulmonary nodule and 2 mm left lower lobe pulmonary nodule. Assuming patient has no history of malignancy, recommend follow-up per Fleischner Society recommendations. According to the UPDATED 2017 Fleischner Society recommendations, the advised followup imaging for solid nodules < 6 mm is: LOW RISK PATIENT: No routine follow up. HIGH RISK PATIENT: Optional CT at 12 months. ? Fleischner guidelines were followed. Discharge Plan Discharge Clinical Impression: Appendicitis Patient Disposition: Still a Patient Prescriptions: No Action doxycycline monohydrate 100 mg capsule 100 mg PO BID 10 Days Qty: 20 0RF cephalexin 500 mg capsule 500 mg PO Q8H 10 Days Qty: 30 0RF mupirocin 2 % ointment 1 appl topical BID Qty: 15 0RF azithromycin 250 mg tablet See Rx Instructions .ROUTE .COMPLEX Qty: 6 0RF Rx Instructions: take 500 mg today (day 1), then 250 mg for 4 days (days 2-5) amoxicillin-pot clavulanate 875-125 mg tablet 1 tab PO Q12H Qty: 20 0RF
[2022-04-10 06:08] VITALS: BP 120/72; PULSE 47; RESP 14; TEMP 37.1; O2SAT 98
[2022-04-10] MEDS: Piperacillin Sodium/Tazobactam 3.375 GM in 0.9 % Sodium Chloride 50 ML IV (06:45)
[2022-04-10 07:05] VITALS: BP 123/64; PULSE 53; RESP 20; TEMP 36.8; O2SAT 99
[2022-04-10 08:20] LABS: Appearance Urine Clear; Color Urine Yellow; Glucose Urine UA Negative (Negative); Leukocyte Esterase Urine Negative (Negative); Nitrite Urine Negative (Negative); PH 8.5 (5.0-9.0); Specific Gravity - Urine 1.015 (1.005-1.025); Urine Blood Negative (Negative); Urine Ketones Negative (Negative); Urine Protein Negative (Neg-Trace)
--- NOTE | 2022-04-10 08:50 | PM.HPGS ---
History of Present Illness History of Present Illness Date of Service: 04/16/22 Chief complaint: Right sided abdominal pain Narrative: Ranulfo Connor is a 46 year old male this morning because of what he described as sharp pain on the side of his abdomen. He says this started only today. He says he went to bed asymptomatic last night. He says he has noticed some pain on the muscle of his back as well for the past few days although this is low-grade. He denies any nausea or vomiting. He denies diarrhea. He does not see any primary care physician. His electronic health record says he has a history of a gastric ulcer. He describes his pain as sharp and actually points to the area on the lateral flank just the level of the lower most right ribs. Review of Systems Constitutional: Constitutional: Denies chills and Denies fever(s) Cardiovascular: Cardiovascular: Denies chest pain, Denies dyspnea and Denies dyspnea on exertion Respiratory: Respiratory: Denies cough, Denies dyspnea and Denies dyspnea on exertion Gastrointestinal: Gastrointestinal: Denies hematochezia and Denies change in bowel habits Genitourinary: Genitourinary: Denies hematuria and Denies difficulty urinating Musculoskeletal: Musculoskeletal: Denies back pain and Denies limited range of motion Neurologic: Denies focal weakness and Denies convulsions Psychiatric: Psychiatric: Denies depression and Denies mood swings PMFSH Past Medical History Medical History Gastric ulcer No known health problems Right sided abdominal pain Smoker Social History Social History Alcohol intake: former Smoked in Last 30 Days: Yes Use of substances other than those prescribed or required for medical reasons: Yes Substance Use Type: Opiates Substance Use Frequency Other:: 3 Last Used Substance: Days (ago) Any prior treatment program specific to substance use: Yes (Pt receives methadone treatment) Advance Directives: No Advance Directives Information Provided: Yes Meds Allergies Allergy/AdvReac Type Severity Reaction Status Date / Time codeine [CODEINE] Allergy Intermediate RASH Verified 04/10/22 06:34 Active Medications: Current Medications Heparin Sodium (Porcine) (Heparin Sodium,Porcine 5,000 Unit/Ml Vial) 5,000 unit SUBCUT Q12H MADALYN Ibuprofen (Ibuprofen 600 Mg Tablet) 600 mg PO Q6H PRN PRN Reason: Pain, Moderate (Pain Scale 4-6 Sodium Chloride (0.9 % Sodium Chloride Flush 3 Ml Syringe) 3 ml IVFLUSH QSHIFT [facility] Home Medications Medication Instructions Recorded Confirmed Last Taken Type methadone 80 mg PO DAILY 04/10/22 04/10/22 04/09/22 09:30 History Physical Exam Vital Signs: Vital Signs: Last Vital Signs Temp 98.3 F 04/10/22 07:05 Pulse 53 04/10/22 07:05 Resp 20 04/10/22 07:05 BP 123/64 04/10/22 07:05 Pulse Ox 99 04/10/22 07:05 O2 Del Method 04/10/22 07:05 BMI result Body Mass Index 17.5 Const: General: comfortable and no acute distress Orientation/consciousness: patient oriented x3 Neck: Neck: Yes no lymphadenopathy Resp: Auscultation: clear to auscultation bilaterally Cardio: Rhythm: regular rhythm GI: Other: has point tenderness on the wall on the right along the most right ribs laterally along the axillary line, no tenderness on right lower quadrant, no rebound or guarding Palpation (GI): Soft to palpation, nontender and no guarding Neuro: General: patient oriented x3 Results Results Labs: Short CBC 04/10/22 Range/Units 03:58 WBC 10.1 (4.8-10.8) X10*3/uL Hgb 12.7 L (14.0-18.0) g/dl Hct 38.9 L (42.0-52.0) % Plt Count 274 (160-400) X10*3/uL BMP 04/10/22 03:58 Sodium 137 Potassium 3.7 Chloride 100 Carbon Dioxide 29 BUN 9 Creatinine 0.86 Calcium 9.1 Liver Function 04/10/22 Range/Units 03:58 Total Bilirubin 0.2 (0.0-1.0) mg/dL AST 22 (5-37) U/L ALT 20 (0-40) U/L Alkaline Phosphatase 79 (39-117) U/L Albumin 4.2 (3.5-5.0) g/dL Urine 04/10/22 Range/Units 08:03 Urine Color Yellow Urine Appearance Clear Urine pH 8.5 (5.0-9.0) Ur Specific Woody 1.015 (1.005-1.025) Urine Protein Negative (Neg-Trace) mg/dL Urine Glucose (UA) Negative (Negative) mg/dL Additional studies: Laboratory Results WBC 10.1 X10*3/uL (4.8-10.8) 04/10/22 03:58 RBC 4.69 X10*6/uL (4.60-5.80) 04/10/22 03:58 Hgb 12.7 g/dl (14.0-18.0) L 04/10/22 03:58 Hct 38.9 % (42.0-52.0) L 04/10/22 03:58 MCV 82.9 fL (80.0-98.0) 04/10/22 03:58 MCH 27.1 pg (27.0-33.0) 04/10/22 03:58 MCHC 32.6 g/dl (31.0-36.0) 04/10/22 03:58 RDW 14.1 % (11.0-16.0) 04/10/22 03:58 Plt Count 274 X10*3/uL (160-400) 04/10/22 03:58 MPV 10.1 fL (9.4-12.4) 04/10/22 03:58 Immature Gran % (Auto) 0.3 % (0.0-0.4) 04/10/22 03:58 Neut % (Auto) 61.2 % (45-73) 04/10/22 03:58 Lymph % (Auto) 24.3 % (20-40) 04/10/22 03:58 [place] % (Auto) 10.1 % (2-11) 04/10/22 03:58 Eos % (Auto) 3.5 % (0-4) 04/10/22 03:58 Baso % (Auto) 0.6 % (0-2) 04/10/22 03:58 Lymph # (Auto) 2.5 X10*3/uL (1.2-4.9) 04/10/22 03:58 [place] # (Auto) 1.0 X10*3/uL (0.1-1.2) 04/10/22 03:58 Eos # (Auto) 0.4 X10*3/uL (0.0-0.4) 04/10/22 03:58 Baso # (Auto) 0.1 X10*3/uL (0.0-0.2) 04/10/22 03:58 Abs Immat Gran (auto) 0.03 X10*3/uL (0.00-0.03) 04/10/22 03:58 Absolute Neuts (auto) 6.2 x10*3/uL (2.0-8.3) 04/10/22 03:58 Absolute Nucleated RBC 0.000 X10*3/uL (0.0-0.012) 04/10/22 03:58 Nucleated RBC % (auto) 0.0 /100WBC (0.0-0.2) 04/10/22 03:58 Sodium 137 mmol/L (135-145) 04/10/22 03:58 Potassium 3.7 mmol/L (3.3-5.1) 04/10/22 03:58 Chloride 100 mmol/L (96-108) 04/10/22 03:58 Carbon Dioxide 29 mmol/L (22-29) 04/10/22 03:58 Anion Gap 12 (12-20) 04/10/22 03:58 BUN 9 mg/dL (9-16) 04/10/22 03:58 Creatinine 0.86 mg/dL (0.5-1.4) 04/10/22 03:58 Estim Creat Clear Calc 89.9 04/10/22 03:58 Estimated GFR > 60 04/10/22 03:58 Random Glucose 134 mg/dL (60-115) H 04/10/22 03:58 Calcium 9.1 mg/dL (8.4-10.2) 04/10/22 03:58 Total Bilirubin 0.2 mg/dL (0.0-1.0) 04/10/22 03:58 AST 22 U/L (5-37) 04/10/22 03:58 ALT 20 U/L (0-40) 04/10/22 03:58 Alkaline Phosphatase 79 U/L (39-117) 04/10/22 03:58 Total Protein 6.8 g/dL (6.5-8.0) 04/10/22 03:58 Albumin 4.2 g/dL (3.5-5.0) 04/10/22 03:58 Urine Color Yellow 04/10/22 08:03 Urine Appearance Clear 04/10/22 08:03 Urine pH 8.5 (5.0-9.0) 04/10/22 08:03 Ur Specific Woody 1.015 (1.005-1.025) 04/10/22 08:03 Urine Protein Negative mg/dL (Neg-Trace) 04/10/22 08:03 Urine Glucose (UA) Negative mg/dL (Negative) 04/10/22 08:03 Urine Ketones Negative mg/dL (Negative) 04/10/22 08:03 Urine Blood Negative (Negative) 04/10/22 08:03 Urine Nitrite Negative (Negative) 04/10/22 08:03 Ur Leukocyte Esterase Negative (Negative) 04/10/22 08:03 COVID-19 (BETH) Negative (Negative) 04/10/22 04:00 COVID-19 Clin Com See Note 04/10/22 04:00 Impressions Abdomen/Pelvis CT 04/10/22 05:09 IMPRESSION: Limited noncontrast examination. 1. The appendix is slightly dilated measuring up to 8 mm in diameter with no significant periappendiceal fat stranding, recommend clinical correlation for early acute appendicitis. 2. Moderate colonic stool content suggesting constipation. 3. No nephrolithiasis or hydronephrosis. 4. Incidentally noted 4 mm right lower lobe pulmonary nodule and 2 mm left lower lobe pulmonary nodule. Assuming patient has no history of malignancy, recommend follow-up per Fleischner Society recommendations. According to the UPDATED 2017 Fleischner Society recommendations, the advised followup imaging for solid nodules < 6 mm is: LOW RISK PATIENT: No routine follow up. HIGH RISK PATIENT: Optional CT at 12 months. Fleischner guidelines were followed. Assessment and Plan (1) Right sided abdominal pain: Status: Acute I have reviewed his CAT scan. The DX appears borderline dilated. However there is no other evidence of any ongoing inflammatory changes. He does not have any leukocytosis. Physical exam actually shows that he has point tenderness along the long her most right ribs on the anterior axillary area. Does not have any tenderness on the right lower quadrant. His overall clinical picture does not suggest acute appendicitis. This is more suggestive of musculoskeletal pain including costochondritis. I will admit him for observation. I will start him on NSAIDs. He is okay to have regular food. I explained to him that if his exam does not show any being, he may be able to go home later on today. He understands the plan and is comfortable with this. Time Spent With Patient Time: Total time managing care of this patient today ____ minutes. Quality Stroke Does the patient have a stroke diagnosis?: No VTE Prior VTE?: No VTE Risk Level:: Medical - moderate - high VTE Device Contraindication: N/A - Device Ordered VTE Drug Contraindication: N/A - Med Ordered Procedures Date of Service Date of Service: 04/10/22
[2022-04-10 09:01] VITALS: BP 113/75; PULSE 49; RESP 18; TEMP 36.8; O2SAT 96
--- NOTE | 2022-04-10 09:12 | HE.PHANOTE ---
METHADONE CONFIRMATION FORM 80MG FROM [facility]
--- NOTE | 2022-04-10 11:25 | PC.NURSE ---
[facility] removed iv and eloped. Dr Frey and supervisor [employer] made aware.
--- NOTE | 2022-04-10 16:18 | PM.EVENT ---
Event Note Date of Service: 04/10/22 Event Note: informed earliert today bu nurse that pt had absconded he apprarently pulled out his IV and left room - not witnessed pt could not be found in premised Time Spent With Patient Time: Total time managing care of this patient today ____ minutes.
--- NOTE | 2022-04-14 12:08 | P.DS_ITS ---
DS: Providers Provider Date of Service: 04/10/22 Date of admission: 04/10/22 08:48 Primary care physician: [facility] DS: Diagnosis Discharge Diagnosis (1) Right sided abdominal pain: Status: Acute DS: Summary Hospital Course Hospital Course: 46-year-old male admitted for observation because of abdominal CT scan showing a dilated appendix. This did not reveal any inflammatory changes. His tenderness was not on the right lower quadrant past was actually on the right lower most ribs. This was suggestive of costochondritis or a musculoskeletal origin. He had a benign exam. He absconded as soon as she went up to the regular floor. The admitting nurse on the floor actually was not even able to see him. Time Spent with Patient Time attestation: Total time managing care of this patient today ____ minutes. Discharge coordination time: Less than 30 minutes Quality: Safe Use of Opioids Does Pt have an Active Cancer Diagnosis on the Problem List?: No Quality: Stroke Does the patient have a stroke diagnosis?: No Physical Exam Vital Signs: Vital Signs: Last Vital Signs Temp 98.2 F 04/10/22 09:01 Pulse 49 L 04/10/22 09:01 Resp 18 04/10/22 09:01 BP 113/75 04/10/22 09:01 Pulse Ox 96 04/10/22 09:01 O2 Del Method 04/10/22 07:05 BMI result Body Mass Index 17.5 Const: General: comfortable and no acute distress Orientation/consciousness: patient oriented x3 Neck: Neck: Yes no lymphadenopathy Chest: Other: Tender on the right lower most ribs Resp: Auscultation: clear to auscultation bilaterally Cardio: Rhythm: regular rhythm GI: Palpation (GI): Soft to palpation, nontender and no guarding Neuro: General: patient oriented x3 DS: Data Data Completed and Pending Labs on day of discharge: Laboratory Results WBC 10.1 X10*3/uL (4.8-10.8) 04/10/22 03:58 RBC 4.69 X10*6/uL (4.60-5.80) 04/10/22 03:58 Hgb 12.7 g/dl (14.0-18.0) L 04/10/22 03:58 Hct 38.9 % (42.0-52.0) L 04/10/22 03:58 MCV 82.9 fL (80.0-98.0) 04/10/22 03:58 MCH 27.1 pg (27.0-33.0) 04/10/22 03:58 MCHC 32.6 g/dl (31.0-36.0) 04/10/22 03:58 RDW 14.1 % (11.0-16.0) 04/10/22 03:58 Plt Count 274 X10*3/uL (160-400) 04/10/22 03:58 MPV 10.1 fL (9.4-12.4) 04/10/22 03:58 Immature Gran % (Auto) 0.3 % (0.0-0.4) 04/10/22 03:58 Neut % (Auto) 61.2 % (45-73) 04/10/22 03:58 Lymph % (Auto) 24.3 % (20-40) 04/10/22 03:58 [place] % (Auto) 10.1 % (2-11) 04/10/22 03:58 Eos % (Auto) 3.5 % (0-4) 04/10/22 03:58 Baso % (Auto) 0.6 % (0-2) 04/10/22 03:58 Lymph # (Auto) 2.5 X10*3/uL (1.2-4.9) 04/10/22 03:58 [place] # (Auto) 1.0 X10*3/uL (0.1-1.2) 04/10/22 03:58 Eos # (Auto) 0.4 X10*3/uL (0.0-0.4) 04/10/22 03:58 Baso # (Auto) 0.1 X10*3/uL (0.0-0.2) 04/10/22 03:58 Abs Immat Gran (auto) 0.03 X10*3/uL (0.00-0.03) 04/10/22 03:58 Absolute Neuts (auto) 6.2 x10*3/uL (2.0-8.3) 04/10/22 03:58 Absolute Nucleated RBC 0.000 X10*3/uL (0.0-0.012) 04/10/22 03:58 Nucleated RBC % (auto) 0.0 /100WBC (0.0-0.2) 04/10/22 03:58 Sodium 137 mmol/L (135-145) 04/10/22 03:58 Potassium 3.7 mmol/L (3.3-5.1) 04/10/22 03:58 Chloride 100 mmol/L (96-108) 04/10/22 03:58 Carbon Dioxide 29 mmol/L (22-29) 04/10/22 03:58 Anion Gap 12 (12-20) 04/10/22 03:58 BUN 9 mg/dL (9-16) 04/10/22 03:58 Creatinine 0.86 mg/dL (0.5-1.4) 04/10/22 03:58 Estim Creat Clear Calc 89.9 04/10/22 03:58 Estimated GFR > 60 04/10/22 03:58 Random Glucose 134 mg/dL (60-115) H 04/10/22 03:58 Calcium 9.1 mg/dL (8.4-10.2) 04/10/22 03:58 Total Bilirubin 0.2 mg/dL (0.0-1.0) 04/10/22 03:58 AST 22 U/L (5-37) 04/10/22 03:58 ALT 20 U/L (0-40) 04/10/22 03:58 Alkaline Phosphatase 79 U/L (39-117) 04/10/22 03:58 Total Protein 6.8 g/dL (6.5-8.0) 04/10/22 03:58 Albumin 4.2 g/dL (3.5-5.0) 04/10/22 03:58 Urine Color Yellow 04/10/22 08:03 Urine Appearance Clear 04/10/22 08:03 Urine pH 8.5 (5.0-9.0) 04/10/22 08:03 Ur Specific [place] 1.015 (1.005-1.025) 04/10/22 08:03 Urine Protein Negative mg/dL (Neg-Trace) 04/10/22 08:03 Urine Glucose (UA) Negative mg/dL (Negative) 04/10/22 08:03 Urine Ketones Negative mg/dL (Negative) 04/10/22 08:03 Urine Blood Negative (Negative) 04/10/22 08:03 Urine Nitrite Negative (Negative) 04/10/22 08:03 Ur Leukocyte Esterase Negative (Negative) 04/10/22 08:03 COVID-19 (BETH) Negative (Negative) 04/10/22 04:00 COVID-19 Clin Com See Note 04/10/22 04:00 Impressions Abdomen/Pelvis CT 04/10/22 05:09 IMPRESSION: Limited noncontrast examination. 1. The appendix is slightly dilated measuring up to 8 mm in diameter with no significant periappendiceal fat stranding, recommend clinical correlation for early acute appendicitis. 2. Moderate colonic stool content suggesting constipation. 3. No nephrolithiasis or hydronephrosis. 4. Incidentally noted 4 mm right lower lobe pulmonary nodule and 2 mm left lower lobe pulmonary nodule. Assuming patient has no history of malignancy, recommend follow-up per Fleischner Society recommendations. According to the UPDATED 2017 Fleischner Society recommendations, the advised followup imaging for solid nodules < 6 mm is: LOW RISK PATIENT: No routine follow up. HIGH RISK PATIENT: Optional CT at 12 months. Fleischner guidelines were followed. Discharge Plan Discharge Patient Disposition: Left Against Medical Advice Referrals: [facility] [Primary Care Provider] - 1 Week Discharge Medications: No Action doxycycline monohydrate 100 mg capsule 100 mg PO BID 10 Days Qty: 20 0RF cephalexin 500 mg capsule 500 mg PO Q8H 10 Days Qty: 30 0RF mupirocin 2 % ointment 1 appl topical BID Qty: 15 0RF azithromycin 250 mg tablet See Rx Instructions .ROUTE .COMPLEX Qty: 6 0RF Rx Instructions: take 500 mg today (day 1), then 250 mg for 4 days (days 2-5) methadone 80 mg 80 mg PO DAILY amoxicillin-pot clavulanate 875-125 mg tablet 1 tab PO Q12H Qty: 20 0RF Discharge Orders: Discharge Order (Routine); Ordered 04/14/22 Ordered By: Dragan Hwang Care Plan Goals: Patient absconded Health Concerns: Methadone Plan of Treatment: Patient absconded Assessment: Patient absconded Discharge Date/Time: 04/10/22 11:30
== END 2022-04-10 11:30 | disposition left against medical advice (07) ==
LOC: HO.ED 06:25 → HO.EDOVER 08:55 → HO.S3 10:02
PROVIDERS: Admitting Provider Surgery; Emergency Provider Emergency Medicine; Visit Provider Surgery
DX: R10.31 Right lower quadrant pain (principal); F11.10 Opioid abuse, uncomplicated; Z20.822 Contact with and (suspected) exposure to COVID-19; Z79.899 Other long term (current) drug therapy
CPT/HCPCS: 36415; 74176; 80053; 81003; 85025; 87635; 96374; 99218; 99285; J2543

== ENCOUNTER 2024-01-29 16:20 | Emergency (ER) | payer OTHER, MEDICAID, SELFPAY ==
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
[2024-01-29 16:41] VITALS: BP 118/56; BP 85/50; PULSE 62; PULSE 72; RESP 18; TEMP 36.6; O2SAT 98; BMI 15.6
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
[2024-01-29 19:05] VITALS: BP 100/68; PULSE 62; RESP 18; TEMP 36.6; O2SAT 98
== END 2024-01-29 19:05 | disposition home or self-care (01) ==
PROVIDERS: Emergency Provider Internal Medicine
DX: S83.92XA Sprain of unspecified site of left knee, initial encounter (principal); M25.562 Pain in left knee; V03.90XA Pedestrian on foot injured in collision with car, pick-up truck or van, unspecified whether traffic or nontraffic accident, initial encounter; Y93.01 Activity, walking, marching and hiking; Y92.481 Parking lot as the place of occurrence of the external cause; Y99.8 Other external cause status
CPT/HCPCS: 73562; 99282; 99283

== ENCOUNTER 2024-09-12 22:07 | Emergency (ER) | payer SELFPAY ==
--- NOTE | ~2024-09-12 | XR_ITS ---
CLINICAL HISTORY: fall, pain and swelling 3 view left wrist Comparison: None Findings: No acute fractures or dislocations. No radiopaque foreign body. IMPRESSION: 1. No acute fracture or dislocation injury identified at the left wrist. This document has been electronically signed by: Mann Ramirez MD on 09/12/2024 23:01:38
--- NOTE | ~2024-09-12 | XR_ITS ---
CLINICAL HISTORY: fall, pain and swelling 3 view left hand Comparison: None Findings: Bones intact. No dislocations. No radiopaque foreign body. IMPRESSION: 1. No acute fracture or dislocation injury identified at the left hand This document has been electronically signed by: Mann Ramirez MD on 09/12/2024 23:09:43
[2024-09-12 22:11] VITALS: BP 139/83; PULSE 78; RESP 20; TEMP 36.9; O2SAT 96; BMI 16.3
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
[2024-09-12] MEDS: methocarbamoL 750 MG TABLET 1500 MG PO (23:56)
[2024-09-12] MEDS: Ibuprofen 600 MG TABLET PO (23:56)
[2024-09-12] MEDS: Acetaminophen 325 MG TABLET 975 MG PO (23:56)
[2024-09-13 00:08] VITALS: BP 142/86; PULSE 57; RESP 14; TEMP 36.9; O2SAT 97
[2024-09-13 00:18] VITALS: BP 142/86; PULSE 57; RESP 14; TEMP 36.9; O2SAT 97
== END 2024-09-13 00:19 | disposition home or self-care (01) ==
PROVIDERS: Emergency Provider Emergency Medicine
DX: M25.532 Pain in left wrist (principal); M79.642 Pain in left hand
CPT/HCPCS: 73110; 73130; 99283; 99284

== ENCOUNTER → 2024-09-12 22:27 | Outpatient (BNV) | payer SELFPAY | PROVIDERS: Emergency Provider Emergency Medicine; Visit Provider Radiology Diagnostic Radiology | DX: M79.642 Pain in left hand (principal); M25.532 Pain in left wrist; R22.32 Localized swelling, mass and lump, left upper limb; W19.XXXA Unspecified fall, initial encounter | CPT/HCPCS: 73110; 73130 ==